=== PATIENT | male | born 1950 | race Caucasian/White ===

== ENCOUNTER → 2020-02-12 11:31 | Outpatient (REF) | payer MEDICARE, OTHER, SELFPAY | LOC: ANHLAB 11:31 | PROVIDERS: PCP Internal Medicine; Visit Provider Nurse Practitioner | DX: D49.2 Neoplasm of unspecified behavior of bone, soft tissue, and skin (principal) | CPT/HCPCS: 88305; 88342 ==

== ENCOUNTER → 2020-02-19 14:38 | Outpatient (REF) | payer MEDICARE, OTHER, SELFPAY | LOC: ANHLAB 14:38 | PROVIDERS: PCP Internal Medicine; Visit Provider Nurse Practitioner | DX: D22.61 Melanocytic nevi of right upper limb, including shoulder (principal) | CPT/HCPCS: 88305; 88342 ==

== ENCOUNTER → 2020-12-02 09:01 | Outpatient (REF) | payer MEDICARE, OTHER, SELFPAY | LOC: ANHLAB 09:01 | PROVIDERS: PCP Internal Medicine; Visit Provider Nurse Practitioner | DX: C44.222 Squamous cell carcinoma of skin of right ear and external auricular canal (principal); C44.329 Squamous cell carcinoma of skin of other parts of face; C43.61 Malignant melanoma of right upper limb, including shoulder | CPT/HCPCS: 88305; 88342 ==

== ENCOUNTER 2020-12-15 12:24 | Outpatient (CLI) | payer MEDICARE, OTHER, SELFPAY ==
--- NOTE | ~2020-12-15 | US_ITS ---
EXAMINATION: US soft tissue LE LT DATE: 12/15/2020 12:54 INDICATION: Left lower limb lump. TECHNIQUE: Multiple grayscale and Doppler ultrasound images of the left lower limb were obtained. COMPARISON: None FINDINGS: Distal to the site of left lower limb melanoma resection is a 6 mm subcutaneous hypoechoic mass with surrounding hyperechoic fat. IMPRESSION: 1. Small subcutaneous mass in left lower limb distal to the melanoma resection site, most likely infl ammation or scarring. Reviewed, dictated and finalized at location A. IMPRESSION: 1. Small subcutaneous mass in left lower limb distal to the melanoma resection site, most likely inflammation or scarring.
== END 2020-12-15 12:25 | disposition home or self-care (01) ==
PROVIDERS: PCP Internal Medicine; Visit Provider Nurse Practitioner
DX: R22.42 Localized swelling, mass and lump, left lower limb (principal)
CPT/HCPCS: 76882

== ENCOUNTER → 2020-12-16 10:50 | Outpatient (REF) | payer MEDICARE, OTHER, SELFPAY | LOC: ANHLAB 10:50 | PROVIDERS: PCP Internal Medicine; Visit Provider Nurse Practitioner | DX: D48.5 Neoplasm of uncertain behavior of skin (principal) | CPT/HCPCS: 88305 ==

== ENCOUNTER → 2021-01-08 08:36 | Outpatient (REF) | payer MEDICARE, OTHER, SELFPAY | LOC: ANHLAB 08:36 | PROVIDERS: PCP Internal Medicine; Visit Provider Nurse Practitioner | DX: D49.2 Neoplasm of unspecified behavior of bone, soft tissue, and skin (principal) | CPT/HCPCS: 88305 ==

== ENCOUNTER → 2021-02-16 07:13 | Outpatient (REF) | payer MEDICARE, OTHER, SELFPAY | LOC: ANHLAB 07:13 | PROVIDERS: PCP Internal Medicine; Visit Provider Nurse Practitioner | DX: C44.329 Squamous cell carcinoma of skin of other parts of face (principal); C44.222 Squamous cell carcinoma of skin of right ear and external auricular canal | CPT/HCPCS: 88305; 88331; 88332 ==

== ENCOUNTER → 2021-06-02 10:19 | Outpatient (REF) | payer MEDICARE, OTHER, SELFPAY | LOC: ANHLAB 10:19 | PROVIDERS: PCP Internal Medicine; Visit Provider Nurse Practitioner | DX: C44.212 Basal cell carcinoma of skin of right ear and external auricular canal (principal) | CPT/HCPCS: 88305 ==

== ENCOUNTER → 2021-06-29 10:12 | Outpatient (REF) | payer MEDICARE, OTHER, SELFPAY | LOC: ANHLAB 10:12 | PROVIDERS: PCP Internal Medicine; Visit Provider Nurse Practitioner | DX: C44.212 Basal cell carcinoma of skin of right ear and external auricular canal (principal); D49.2 Neoplasm of unspecified behavior of bone, soft tissue, and skin; D03.59 Melanoma in situ of other part of trunk | CPT/HCPCS: 88305; 88331; 88342 ==

== ENCOUNTER → 2021-07-14 10:58 | Outpatient (REF) | payer MEDICARE, OTHER, SELFPAY | LOC: ANHLAB 10:58 | PROVIDERS: PCP Internal Medicine; Visit Provider Nurse Practitioner | DX: D03.59 Melanoma in situ of other part of trunk (principal) | CPT/HCPCS: 88305 ==

== ENCOUNTER → 2021-12-01 10:53 | Outpatient (REF) | payer MEDICARE, OTHER, SELFPAY | LOC: ANHLAB 10:53 | PROVIDERS: PCP Internal Medicine; Visit Provider Nurse Practitioner | DX: D22.5 Melanocytic nevi of trunk (principal) | CPT/HCPCS: 88305; 88342 ==

== ENCOUNTER 2022-12-09 13:01 | Outpatient (NON) | payer MEDICARE, OTHER, SELFPAY | END 2022-12-09 13:02 | disposition home or self-care (01) | LOC: ANHLAB 12-10 13:04 | PROVIDERS: PCP Internal Medicine; Visit Provider Nurse Practitioner | DX: C44.319 Basal cell carcinoma of skin of other parts of face (principal) | CPT/HCPCS: 88305 ==

== ENCOUNTER 2023-02-21 12:51 | Outpatient (NON) | payer MEDICARE, OTHER, SELFPAY | END 2023-02-21 12:52 | disposition home or self-care (01) | LOC: ANHLAB 12:51 | PROVIDERS: PCP Internal Medicine; Visit Provider Nurse Practitioner | DX: C44.319 Basal cell carcinoma of skin of other parts of face (principal) | CPT/HCPCS: 88305; 88331 ==

== ENCOUNTER 2023-03-22 07:00 | Outpatient (NON) | payer MEDICARE, OTHER, SELFPAY | END 2023-03-22 07:01 | disposition home or self-care (01) | LOC: ANHLAB 03-23 12:50 | PROVIDERS: PCP Internal Medicine; Visit Provider Nurse Practitioner | DX: C44.212 Basal cell carcinoma of skin of right ear and external auricular canal (principal) | CPT/HCPCS: 88305 ==

== ENCOUNTER 2023-04-25 15:12 | Outpatient (NON) | payer MEDICARE, OTHER, SELFPAY | END 2023-04-25 15:13 | disposition home or self-care (01) | LOC: ANHLAB 15:13 | PROVIDERS: PCP Internal Medicine; Visit Provider Nurse Practitioner | DX: C44.212 Basal cell carcinoma of skin of right ear and external auricular canal (principal) | CPT/HCPCS: 88305; 88331 ==